=== PATIENT | male | born 1950 | race Caucasian/White ===

== ENCOUNTER 2016-10-03 05:54 | Day surgery (SDC) | payer MEDICARE, BC ==
[2016-09-29 10:02] LABS: HEMATOCRIT 43.8 % (40.0-51.0); HEMOGLOBIN 14.7 g/dL (13.6-17.8)
[2016-09-29 10:16] LABS: BUN (BLOOD UREA NITROGEN) 16 MG/DL (6-23); CALCIUM, SERUM 8.9 MG/DL (8.5-10.4); CHLORIDE, SERUM 110 MMOL/L (96-112); CO2 (CARBON DIOXIDE) 26 MMOL/L (24-34); CREATININE 1.04 MG/DL (0.70-1.30); GFR AFRICAN AMERICAN 86 ML/MIN (>=60); GFR NON AFRICAN AMERICAN 74 ML/MIN (>=60); GLUCOSE, SERUM 113 MG/DL (60-99); POTASSIUM, SERUM 4.7 MMOL/L (3.5-5.3); SODIUM, SERUM 144 MMOL/L (135-148)
--- NOTE | ~2016-10-03 | OP ---
Record Of Operation [facility] [address] [facility] [place]. [address] NAME: DOC ARTHUR : 48 STATUS : REG [facility]#: [id number] AGE: 66 ADM/REG DATE : 10/03/16 MR#: [id number] REPORT SERV DATE: 10/03/16 DICTATED BY: JUVENTINO MUSTAFA DATE: 10/03/16 REPORT STATUS : Draft TRANSCRIBED BY: MODL DATE: 10/03/16 DATE OF PROCEDURE: 10/03/2016 PREOPERATIVE DIAGNOSES: 1. Incarcerated ventral hernia. 2. Hypertension. 3. Chronic obstructive pulmonary disease. 4. Peripheral arterial disease. POSTOPERATIVE DIAGNOSES: 1. Incarcerated ventral hernia. 2. Hypertension. 3. Chronic obstructive pulmonary disease. 4. Peripheral arterial disease. PROCEDURE: 1. Robotic incarcerated incisional hernia repair with mesh. 2. Robotic right posterior component separation. ANESTHESIA: General. SURGEON: Juventino Mustafa M.D. WIRE TWISTER: Job. COMPLICATIONS: None. DRAINS: None. ESTIMATED BLOOD LOSS: 30 mL. FLUIDS: 2000 mL. FINDINGS: The patient was noted to have a complex umbilical ventral hernia with multiple honeycomb tunneling hernias, within a single defect that was approximately 4 cm in diameter. To close the defect primarily, the right posterior sheath was divided for closure without tension, and a retro rectus muscular mesh was placed. OPERATIVE TECHNIQUE: The patient was brought to the operating room and placed on the table in supine position. He had preoperative IV antibiotics. He had sequential hose in place. He voided prior to procedure. He underwent general endotracheal anesthesia and he was prepped and draped in sterile fashion was completed. The table was broken to elongate the trunk, the left upper quadrant incision was made in the midclavicular line just beneath the costal margin. The Veress needle was inserted and water drop test was safely performed. A 15 mm pneumoperitoneum was obtained. A robotic 8 mm trocar was inserted followed by the laparoscope. There was no evidence of Veress or trocar injury. The patient then had a left Record Of Operation [place] [id number] [facility] [place]. [address] NAME: DOC ARTHUR : 48 STATUS : REG [facility]#: [id number] AGE: 66 ADM/REG DATE : 10/03/16 MR#: [id number] REPORT SERV DATE: 10/03/16 DICTATED BY: JUVENTINO MUSTAFA DATE: 10/03/16 REPORT STATUS : Draft TRANSCRIBED BY: GULSHAN DATE: 10/03/16 lower quadrant robotic 8 mm trocar placed under direct visualization into far lateral, left mid, and upper 12 mm trocar was placed under direct visualization. The patient was then placed with his right side up and the patient cart was brought to the bedside and it was docked. The patient was noted to have a large incarcerated hernia with incarcerated preperitoneal fat and at this point, the procedure began. The hernia was visualized and at this point, the peritoneum was divided from the left upper quadrant to the left lower quadrant in the linear fashion. A preperitoneal approach was continued on the left side to the level of the hernia defect. The patient was noted to have severe adhesions of the hernia sac which was then carefully reduced. The sac extended with one component far to the patient's right lower quadrant beneath the posterior sheath. For this reason, after the entire hernia was reduced using careful sharp dissection, and manual reduction, the right side of the mobilization was retro rectus. This dissection continued far to the right lateral abdominal wall and at this point, the entire hernia contents were reduced. This portion took approximately 45 minutes. The patient had the posterior sheath divided with scissors sharply, with care taken not to involve the vasculature of the muscle wall at the transversalis to allow mobilization of the posterior sheath for primary closure. The hernia defect was then closed with a running 2-0 V-Loc suture without tension that was run upon itself for the entire length of the closure. At this point, the Echo Ventralight ST mesh was positioned and brought out through a stab incision around the umbilicus in the midline. The mesh was noted to overlap the closure by approximately 5 cm circumferentially. At this point, the mesh was secured to the posterior elements using a running 2-0 Vicryl sutures circumferentially. The peritoneum was then reperitonealized using a running 3-0 Vicryl suture. There remained a small hole at the level of the umbilicus that was left in situ due to the coated mesh. The patient tolerated the procedure well, and there was no evidence of any other herniation, or bleeding, or other visual abnormalities. The patient then had the 11 mm trocar sites closed with a suture passer under direct visualization with the laparoscope, after the patient's trocars were undocked. The skin edges were then reapproximated using interrupted subcuticular Monocryl sutures. Dermabond was applied to the skin. He had a cotton ball placed in the umbilicus to help prevent with seroma formation. He was taken to the recovery room in stable condition. All sponge and needle counts reported correct. BETH/GULSHAN Juventino Mustafa M.D. / [id number] CC: Leyda Maki M.D.
[~2016-10-03 05:54] MED LIST: ALLERGY RELIEF PO; ASAB PO; IBU-200200 MG PO; LISINOPRIL40 MG PO; NORV5 PO
== END 2016-10-03 15:39 | disposition home or self-care (01) ==
LOC: SDC 05:54
PROVIDERS: Surgery
PROC: 0WUF4JZ Supplement Abdominal Wall with Synthetic Substitute, Percutaneous Endoscopic Approach (ICD-10-PCS; principal; 2016-10-03 07:00)
DX: K43.0 Incisional hernia with obstruction, without gangrene (principal); I10 Essential (primary) hypertension; I73.9 Peripheral vascular disease, unspecified; J44.9 Chronic obstructive pulmonary disease, unspecified; F17.210 Nicotine dependence, cigarettes, uncomplicated; H66.90 Otitis media, unspecified, unspecified ear; N40.0 Benign prostatic hyperplasia without lower urinary tract symptoms; Z79.82 Long term (current) use of aspirin; Z79.899 Other long term (current) drug therapy; Z88.6 Allergy status to analgesic agent; Z88.5 Allergy status to narcotic agent; Z90.89 Acquired absence of other organs; Z98.890 Other specified postprocedural states
CPT/HCPCS: 80048; 85014; 85018; 87641; 93005; A9270-GY; C1781; J0690; J2250; J2405; J2710; J2795; J3010

== ENCOUNTER 2016-10-04 09:30 | Emergency (ER) | payer MEDICARE, BC ==
[2016-10-04 09:25] LABS: BASOPHILS 0.1 %; BASOPHILS ABSOLUTE 0.01 10/3/uL (0.0-0.16); EOSINOPHILS 0.1 %; EOSINOPHILS ABSOLUTE 0.02 10/3/uL (0.0-0.53); HEMOGLOBIN 13.5 g/dL (13.6-17.8); IMMATURE GRANULOCYTES 0.3 %; IMMATURE GRANULOCYTES ABSOLUTE 0.04 10/3/uL (0.0-0.11); LYMPHOCYTES 13.1 %; LYMPHOCYTES ABSOLUTE 2.02 10/3/uL (0.67-4.30); MEAN CORPUS HGB CONC 34.5 g/dL (32.0-36.0); MEAN CORPUSCULAR HEMOGLOB 29.9 pg (26.0-34.0); MEAN CORPUSCULAR VOLUME 86.5 fL (80-100); MONOCYTES 6.7 %; MONOCYTES ABSOLUTE 1.04 10/3/uL (0.21-1.20); NEUTROPHILS 79.7 %; NEUTROPHILS ABSOLUTE 12.29 10/3/uL (2.02-8.40); PLATELET COUNT 250 10/3/uL (150-400); RBC DISTRIBUTION WIDTH 13.8 % (12.0-16.0); RED CELL COUNT 4.52 10/6/uL (4.7-6.1); WHITE BLOOD CELLS 15.4 10/3/uL (4.5-10.5)
[2016-10-04 09:28] LABS: HEMATOCRIT 39.1 % (40.0-51.0); MANUAL DIFF NO %
[2016-10-04 09:44] LABS: A/G RATIO 0.9 (0.7-1.9); ALBUMIN 3.1 G/DL (3.5-5.0); ALKALINE PHOSPHATASE 92 U/L (45-117); BUN (BLOOD UREA NITROGEN) 19 MG/DL (6-23); CALCIUM, SERUM 8.7 MG/DL (8.5-10.4); CHLORIDE, SERUM 107 MMOL/L (96-112); CO2 (CARBON DIOXIDE) 29 MMOL/L (24-34); CREATININE 1.21 MG/DL (0.70-1.30); GFR AFRICAN AMERICAN 71 ML/MIN (>=60); GFR NON AFRICAN AMERICAN 62 ML/MIN (>=60); GLOBULIN 3.4 G/DL (2.5-4.1); GLUCOSE, SERUM 121 MG/DL (60-99); POTASSIUM, SERUM 4.6 MMOL/L (3.5-5.3); SGOT(AST) 9 U/L (5-40); SGPT(ALT) 11 U/L (5-65); SODIUM, SERUM 143 MMOL/L (135-148); TOTAL BILIRUBIN 0.3 MG/DL (0-1.2); TOTAL PROTEIN 6.5 G/DL (6.0-8.5)
[2016-10-04 09:53] LABS: ASCORBIC ACID (UR NOT ORDER) NEG (NEG); BILIRUBIN, URINE NEGATIVE (NEG); ER URINALYSIS TAT 0 Hrs 11 Mins; KETONE, URINE NEGATIVE (NEG); LEUKOCYTE ESTERASE(NOT OR NEG (NEG); NITRITE (URINE) NEG (NEG); WBC (NOT ORDERED) (RFLEX) < 1 (0-5)
== END 2016-10-04 10:37 | disposition home or self-care (01) ==
LOC: ER 09:30
PROVIDERS: Hospitalist
PROC: 0T2BX0Z Change Drainage Device in Bladder, External Approach (ICD-10-PCS; principal; 2016-10-04)
DX: R33.9 Retention of urine, unspecified (principal); D72.829 Elevated white blood cell count, unspecified; I10 Essential (primary) hypertension; F17.200 Nicotine dependence, unspecified, uncomplicated; Z98.890 Other specified postprocedural states; Z88.8 Allergy status to other drugs, medicaments and biological substances; Z88.6 Allergy status to analgesic agent; Z79.82 Long term (current) use of aspirin
CPT/HCPCS: 80053; 81001; 85025; 99283